=== PATIENT | male | born 1950 ===

== ENCOUNTER → 2018-11-15 15:05 | Outpatient (REF) | payer MEDICARE, OTHER, SELFPAY | LOC: LAB 15:05 | PROVIDERS: Visit Provider Physician Assistant | DX: L08.89 Other specified local infections of the skin and subcutaneous tissue (principal); D23.71 Other benign neoplasm of skin of right lower limb, including hip | CPT/HCPCS: 87070; 87075; 87077; 87186; 87205 ==